=== PATIENT | female | born 1995 | race Caucasian/White ===

== ENCOUNTER 2024-05-12 20:31 | Emergency (ER) | payer OTHER ==
--- NOTE | 2024-05-12 20:50 | ED ---
Lower Extremity Injury HPI - General Source: patient, RN notes reviewed Mode of arrival: wheelchair Limitations: no limitations - History of Present Illness MD Complaint: foot injury Onset/Timin -: hour(s) Injury: Foot: Left <BirdieElder - Last Filed: 05/12/24 20:49> <Heather Moody - Last Filed: 05/23/24 20:18> - General Stated Complaint: ankle pain Time Seen by Provider: 05/12/24 20:43 - History of Present Illness Initial Comments: Quick note: This is a 28-year-old female presenting with left foot injury 1 hour ago. Patient states she was sent by the nurse at [facility] following a slip on a kids toy causing her to fall backwards and causing her foot to bend backwards as well. Patient denies striking her head, neck pain or any other injuries besides foot pain. (Elder Packer) 28-year-old female presenting with chief complaint of left foot injury. Patient had a slip and fall from a kids toy on the floor. She fell backwards on her foot hyperextending the foot. She denies any head injury, loss of consciousness, or blood thinners. No other injuries. She is having increased pain with weightbearing. Pain mainly over the dorsal aspect of the foot (Per Heather taveras) - Related Data Allergies Allergy/AdvReac Type Severity Reaction Status Date / Time Penicillins Allergy Anaphylaxis Verified 05/12/24 20:51 Review of Systems ROS Other: All systems not noted in ROS Statement are negative. <Elder Packer - Last Filed: 05/12/24 20:49> ROS Other: All systems not noted in ROS Statement are negative. <Heather Moody - Last Filed: 05/23/24 20:18> ROS Statement: Those systems with pertinent positive or pertinent negative responses have been documented in the HPI. General Exam <Elder Packer - Last Filed: 05/12/24 20:49> Limitations: no limitations General appearance: alert, in no apparent distress Head exam: Present: atraumatic, normocephalic, normal inspection Eye exam: Present: normal appearance, EOMI Neck exam: Present: normal inspection. Absent: meningismus Respiratory exam: Absent: respiratory distress Cardiovascular Exam: Present: regular rate Left Foot/Toe exam: Present: tenderness, swelling. Absent: full ROM Neurovascular tendon exam: Present: no vascular compromise Neurological exam: Present: alert, oriented X3 Psychiatric exam: Present: normal affect, normal mood Skin exam: Present: warm, dry <Heather Moody - Last Filed: 05/23/24 20:18> - General Exam Comments Initial Comments: Visual Physical Exam Vital signs reviewed General: Well-appearing, nontoxic, no acute distress. Patient seated in wheelchair Head: Normocephalic, atraumatic Eyes: PERRLA, EOMI ENT: Airway patent Chest: Nonlabored breathing Skin: No visual rash, normal skin tone Neuro: Alert and oriented 3 Musculoskeletal: No gross abnormalities (Elder Packer) Course Vital Signs 05/12/24 05/12/24 20:48 21:53 Temperature 98.5 F Pulse Rate 71 78 Respiratory 18 16 Rate Blood Pressure 115/81 121/87 O2 Sat by Pulse 97 98 Oximetry Medical Decision Making <Elder Packer - Last Filed: 05/12/24 20:49> <Heather Moody - Last Filed: 05/23/24 20:18> - Medical Decision Making I completed the quick note portion of this chart signed JOSE ELIAS Cifuenets (Elder Packer) Was pt. sent in by a medical professional or institution (FRANKO Brizuela, RESEARCH & ANALYTICS MANAGER, urgent care, hospital, or correction...) When possible be specific @ -No Did you speak to anyone other than the patient for history (EMS, parent, family, police, friend...)? What history was obtained from this source @ -No Did you review nursing and triage notes (agree or disagree)? Why? @ -I reviewed and agree with nursing and triage notes Were old charts reviewed (outside hosp., previous admission, EMS record, old EKG, old radiological studies, urgent care reports/EKG's, correction records)? Report findings @ -No old charts were reviewed Differential Diagnosis (chest pain, altered mental status, abdominal pain women, abdominal pain men, vaginal bleeding, weakness, fever, dyspnea, syncope, headache, dizziness, GI bleed, back pain, seizure, CVA, palpatations, mental health, musculoskeletal)? @ -Differential Musculoskeletal Muscular strain, contusion, ligament sprain, fracture, arthritis, septic arthritis, bursitis, cellulitis, muscle spasm, nerve compression, DVT, arterial occlusion, herpes zoster, electrolyte abnormality, tumor.... This is not meant to be in all inclusive list EKG interpreted by me (3pts min.). @ -As above X-rays interpreted by me (1pt min.). @ -X-ray shows no evidence of acute fracture CT interpreted by me (1pt min.). @ -None done U/S interpreted by me (1pt. min.). @ -None done What testing was considered but not performed or refused? (CT, X-rays, U/S, labs)? Why? @ -None What meds were considered but not given or refused? Why? @ -None Did you discuss the management of the patient with other professionals (professionals i.e. , PA, RESEARCH & ANALYTICS MANAGER, lab, RT, psych nurse, social work supervisor, environmental lawyer, teacher, air control/anti air warfare officer, manager of case management)? Give summary @ -No Was smoking cessation discussed for >3mins.? @ -No Was critical care preformed (if so, how long)? @ -No Were there social determinants of health that impacted care today? How? (Homelessness, low income, unemployed, alcoholism, drug addiction, transportation, low edu. Level, literacy, decrease access to med. care, long-term, rehab)? @ -No Was there de-escalation of care discussed even if they declined (Discuss DNR or withdrawal of care, Hospice)? DNR status @ -No What co-morbidities impacted this encounter? (DM, HTN, Smoking, COPD, CAD, Cancer, CVA, ARF, Chemo, Hep., AIDS, mental health diagnosis, sleep apnea, morbid obesity)? @ -None Was patient admitted / discharged? Hospital course, mention meds given and route, prescriptions, significant lab abnormalities, going to OR and other pertinent info. @ -28-year-old female presenting from [facility] for foot injury. X-rays reviewed showed no fracture or dislocation. Patient is neurovascularly intact. She is educated on today's findings and supportive management at home. Provided with Benjamin wrap. Follow-up with PCP. Report back to ER with any new or worsening symptoms. Discussed return parameters and answered all questions. Patient conveyed verbal understanding and agreed to the plan. I discussed this case in detail with my attending Dr. Hernandez Undiagnosed new problem with uncertain prognosis? @ -No Drug Therapy requiring intensive monitoring for toxicity (Heparin, Nitro, Insulin, Cardizem)? @ -No Were any procedures done? @ -No Diagnosis/symptom? @ -Foot sprain Acute, or Chronic, or Acute on Chronic? @ -Acute Uncomplicated (without systemic symptoms) or Complicated (systemic symptoms)? @ -Uncomplicated Side effects of treatment? @ -No Exacerbation, Progression, or Severe Exacerbation? @ -No Poses a threat to life or bodily function? How? (Chest pain, [place], [place], pneumonia, PE, COPD, DKA, ARF, appy, cholecystitis, CVA, Diverticulitis, Homicidal, Suicidal, threat to staff... and all critical care pts) @ -Unlikely (Heather Moody) Disposition <Elder Packer - Last Filed: 05/12/24 20:49> Is patient prescribed a controlled substance at d/c from ED?: No Time of Disposition: 21:29 <Heather Moody - Last Filed: 05/23/24 20:18> Clinical Impression: Foot sprain Disposition: HOME SELF-CARE Condition: Good Instructions (If sedation given, give patient instructions): Foot Sprain (ED) Additional Instructions: Follow-up with PCP. Report back to ER with any new or worsening symptoms. Take Motrin and Tylenol as needed for pain control. Rest, ice, compress, elevate the foot. Referrals: None,Stated [Primary Care Provider] - 1-2 days Josephine Richardson MD [STAFF PHYSICIAN] - 1-2 days
[2024-05-12 20:51] VITALS: TEMP 98.5
--- NOTE | 2024-05-12 21:15 | XR ---
EXAMINATION TYPE: XR foot complete LT DATE OF EXAM: 05/12/2024 9:01 PM COMPARISON: None CLINICAL INDICATION: Female, 28 years old with history of Foot bent backwards; PHH, pain TECHNIQUE: XR foot complete LT examined in the AP, oblique, and lateral projections. FINDINGS: No evidence of any acute osseous pathology. No radiopaque foreign body. IMPRESSION: No evidence of acute fracture. [facility], , 05/12/2024 9:13 PM
[2024-05-12 21:56] VITALS: BP 121/87; PULSE 78; RESP 16
== END 2024-05-12 21:53 | disposition home or self-care (01) ==
LOC: EC 20:31
DX: S93.602A Unspecified sprain of left foot, initial encounter (principal); Z88.0 Allergy status to penicillin; W01.0XXA Fall on same level from slipping, tripping and stumbling without subsequent striking against object, initial encounter
CPT/HCPCS: 99283